=== PATIENT | male | born 1985 | race African-American/Black ===

== ENCOUNTER 2019-08-05 17:09 | Emergency (ER) | payer OTHER ==
[~2019-08-05] VITALS: Ht 182.9 cm; Wt 72.6 kg
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
[2019-08-05 17:52] VITALS: BP 104/66
== END 2019-08-05 17:52 | disposition home or self-care (01) ==
LOC: ER 17:09
DX: F10.129 Alcohol abuse with intoxication, unspecified (principal); Y90.9 Presence of alcohol in blood, level not specified